=== PATIENT | male | born 1945 | race Caucasian/White ===

== ENCOUNTER 2017-05-30 20:44 | Emergency (ER) | payer MEDICARE ==
[2017-05-30 20:57] VITALS: BP 122/80; PULSE 91; RESP 16; TEMP 97.5
--- NOTE | 2017-05-30 21:26 | XR ---
EXAMINATION TYPE: XR chest 2V DATE OF EXAM: 05/30/2017 COMPARISON: NONE HISTORY: Cough TECHNIQUE: Frontal and lateral views of the chest are obtained. FINDINGS: Heart and mediastinum are normal. Lungs are clear. Costophrenic angles are clear. Bony tho rax is intact. IMPRESSION: Normal chest
--- NOTE | 2017-05-30 21:29 | ED ---
General Adult HPI - General Chief complaint: Back Pain/Injury Stated complaint: Back pain Time Seen by Provider: 05/30/17 21:04 Source: patient, RN notes reviewed Mode of arrival: ambulatory Limitations: no limitations - History of Present Illness Initial comments: 71-year-old male presents to the emergency department with a chief complaint of left-sided posterior rib pain. He states that he has been coughing a lot lately and anytime he coughs to get this pain to the left lower ribs. He states he is currently on Bactrim from his doctor due to upper respiratory infections. He states he just continues to have this cough that is causing some pain. He states he is not coughing anything removed. Can do whatever but as soon as he starts coughing he'll get a sharp pain. He denies any increased shortness of breath. He states that her respiratory symptoms seem to be improving. He was just making sure that everything was okay so he thought that he should be seen.Patient denies any recent fever, chills, shortness of breath, chest pain, back pain, abdominal pain, nausea vomiting, numbness or tingling, dysuria or hematuria, constipation or diarrhea, headaches or visual changes, or any other current symptoms. - Related Data Home Medications Medication Instructions Recorded Confirmed Losartan/Hydrochlorothiazide 1 each PO DAILY 08/06/13 10/14/13 [Losartan-Hctz 100-25 mg Tab] Ranitidine HCl [Zantac] 150 mg PO DAILY 08/06/13 10/14/13 Simvastatin [Zocor] 10 mg PO HS 08/06/13 10/14/13 Tamsulosin [Flomax] 0.4 mg PO DAILY 08/06/13 10/14/13 amLODIPine BESYLATE [Norvasc] 5 mg PO DAILY 08/06/13 10/14/13 Indomethacin [Indocin] 50 mg PO BID 10/14/13 10/14/13 Previous Rx's Medication Instructions Recorded Meclizine [Antivert] 25 mg PO TID #20 tab 10/14/13 Promethaz-Cod 6.25-10 mg/5 ml 5 ml PO Q4HR PRN #30 ml 05/30/17 [Phenergan with Codeine] Allergies Allergy/AdvReac Type Severity Reaction Status Date / Time No Known Allergies Allergy Verified 10/14/13 07:18 Review of Systems ROS Statement: Those systems with pertinent positive or pertinent negative responses have been documented in the HPI. ROS Other: All systems not noted in ROS Statement are negative. Past Medical History Past Medical History: GERD/Reflux, Hyperlipidemia, Hypertension, Osteoarthritis (OA), Prostate Disorder History of Any Multi-Drug Resistant Organisms: None Reported Past Surgical History: Appendectomy, Back Surgery, Hernia Repair, Joint Replacement, Orthopedic Surgery Additional Past Surgical History / Comment(s): LT TKA 2009 Past Anesthesia/Blood Transfusion Reactions: Postoperative Nausea & Vomiting ( PONV) Past Psychological History: No Psychological Hx Reported Smoking Status: Former smoker Past Alcohol Use History: Occasional Past Drug Use History: None Reported - Past Family History Mother Family Medical History: Cancer General Exam Limitations: no limitations General appearance: alert, in no apparent distress Eye exam: Present: normal appearance, PERRL, EOMI. Absent: scleral icterus, conjunctival injection, periorbital swelling ENT exam: Present: normal exam, mucous membranes moist Neck exam: Present: normal inspection. Absent: tenderness, meningismus, lymphadenopathy Respiratory exam: Present: normal lung sounds bilaterally, chest wall tenderness (Over left posterior lower rib cage). Absent: respiratory distress, wheezes, rales, rhonchi, stridor Cardiovascular Exam: Present: regular rate, normal rhythm GI/Abdominal exam: Present: soft, normal bowel sounds. Absent: distended, tenderness, guarding, rebound, rigid Extremities exam: Present: normal inspection, full ROM, normal capillary refill. Absent: tenderness, pedal edema, joint swelling, calf tenderness Back exam: Present: normal inspection, full ROM. Absent: tenderness Neurological exam: Present: alert, oriented X3 Psychiatric exam: Present: normal affect, normal mood Skin exam: Present: warm, dry, intact, normal color. Absent: rash Course Vital Signs 05/30/17 20:52 Temperature 97.5 F L Pulse Rate 91 Respiratory 16 Rate Blood Pressure 122/80 O2 Sat by Pulse 97 Oximetry Medical Decision Making - Medical Decision Making 71-year-old male presents with what appears to be a costochondritis. This time we discussed ice to the area. We discussed Motrin Tylenol. We did give him cough medicine. We discussed follow-up we discussed return parameters all questions. They stated they understood and management this plan. All questions have been answered. They will be discharged. - Radiology Data Radiology results: report reviewed, image reviewed Disposition Clinical Impression: Costochondritis, acute Disposition: HOME SELF-CARE Condition: Stable Instructions: Costochondritis (ED) Additional Instructions: Please use medication as discussed. Please follow up with family doctor if symptoms have not improved over the next two days. Please return to the emergency room if your symptoms increase or worsen or for any other concerns. Prescriptions: Promethaz-Cod 6.25-10 mg/5 ml [Phenergan with Codeine] 5 ml PO Q4HR PRN #30 ml PRN Reason: Cough Referrals: Ramsey Vaughn MD [Primary Care Provider] - 1-2 days Time of Disposition: 21:33
== END 2017-05-30 21:40 | disposition home or self-care (01) ==
LOC: EC 20:44
DX: M94.0 Chondrocostal junction syndrome [Tietze] (principal); K21.9 Gastro-esophageal reflux disease without esophagitis; E78.5 Hyperlipidemia, unspecified; I10 Essential (primary) hypertension; M19.90 Unspecified osteoarthritis, unspecified site; N42.9 Disorder of prostate, unspecified; Z98.890 Other specified postprocedural states; Z87.891 Personal history of nicotine dependence; Z79.1 Long term (current) use of non-steroidal anti-inflammatories (NSAID); Z79.899 Other long term (current) drug therapy
CPT/HCPCS: 71046; 99283

== ENCOUNTER 2018-02-11 09:35 | Day surgery (SDC) | payer MEDICARE ==
[2018-02-06 10:38] VITALS: BMI 26.6
[~2018-02-11 09:35] MED LIST: DEXAMETHASONE SOD PHOSPHATE 10 MG/ML 1 ML VIAL IV ONE; HEPARIN SODIUM,PORCINE 5,000 UNIT/ML 1 ML VIAL SQ ONE; HYDROmorphone 1 MG/ML 1 ML SYRINGE IVP PRN; ONDANSETRON 4 MG/2 ML VIAL IVP ONE; ceFAZolin IN SWFI 2 GM/20 ML SYRINGE IVP ONE
[2018-02-11] MEDS: LACTATED RINGERS 1,000 ML IV SCH ×2 (11:41→11:42)
[2018-02-11] MEDS ORDERED: LIDOCAINE 1% 20 ML VIAL (10MG/ML) FOR IV START INTRADERMA ONE (11:42)
[2018-02-11] MEDS ORDERED: MIDAZOLAM 2 MG/2 ML VIAL IVP ONE (11:57)
--- NOTE | 2018-02-11 12:41 | P.GSHP ---
History of Present Illness H&P Date: 02/11/18 Chief Complaint: Left inguinal hernia This a 72-year-old male referred from Dr. Vaughn. Patient presents today for laparoscopic robotic-assisted repair of left inguinal hernia. Patient has an incarcerated left we'll hernia. There is omentum and colon within the hernia. Past Medical History Past Medical History: Hyperlipidemia, Hypertension, Osteoarthritis (OA), Prostate Disorder, Thyroid Disorder Additional Past Medical History / Comment(s): hx ulcer, History of Any Multi-Drug Resistant Organisms: None Reported Past Surgical History: Appendectomy, Back Surgery, Heart Catheterization, Hernia Repair, Joint Replacement, Orthopedic Surgery Additional Past Surgical History / Comment(s): left knee replacement, afshan elbow surgery for tendon release, rt inguinal heria, spinal laminectomy, left knee arthroscopy, rt bicep tendon reattached, rt hip replacement, rt hip revision, cervical fusion, afshan cataracts Past Anesthesia/Blood Transfusion Reactions: Postoperative Nausea & Vomiting ( PONV) Smoking Status: Former smoker - Past Family History Mother Family Medical History: Cancer Additional Family Medical History / Comment(s): breast Medications and Allergies Home Medications Medication Instructions Recorded Confirmed Type Losartan/Hydrochlorothiazide 1 each PO DAILY 08/06/13 02/06/18 History [Losartan-Hctz 100-25 mg Tab] Simvastatin [Zocor] 10 mg PO HS 08/06/13 02/11/18 History Tamsulosin [Flomax] 0.4 mg PO BID 08/06/13 02/11/18 History amLODIPine BESYLATE [Norvasc] 5 mg PO DAILY 08/06/13 02/06/18 History Indomethacin [Indocin] 50 mg PO BID 10/14/13 02/06/18 History Acetaminophen Tab [Tylenol Tab] 325 mg PO Q6H PRN 02/06/18 02/11/18 History Aspirin [Adult Low Dose Aspirin EC] 81 mg PO DAILY 02/06/18 02/06/18 History Levothyroxine Sodium [Synthroid] 25 mcg PO DAILY 02/06/18 02/06/18 History Omeprazole 20 mg PO QAM 02/06/18 02/06/18 History Xlear 2 spray NASAL BID 02/06/18 02/11/18 History Allergies Allergy/AdvReac Type Severity Reaction Status Date / Time No Known Allergies Allergy Verified 02/06/18 10:23 Surgical - Exam Vital Signs Temp Pulse Resp BP Pulse Ox 98.1 F 69 18 131/78 94 L 02/11/18 11:09 02/11/18 11:09 02/11/18 11:09 02/11/18 11:09 02/11/18 11:09 - General well developed, no distress - Eyes PERRL - ENT normal pinna - Neck no masses - Respiratory normal expansion - Cardiovascular Rhythm: regular - Abdomen Incarcerated left internal hernia Abdomen: soft, non tender Assessment and Plan Assessment: Left inguinal hernia. We'll perform laparoscopic robotic-assisted repair.
[2018-02-11] MEDS ORDERED: ePHEDrine SULFATE/0.9% NACL/PF 50 MG/5 ML SYRINGE IV ONE (13:06)
[2018-02-11] MEDS ORDERED: SUCCINYLCHOLINE CHLORIDE 100 MG/5 ML SYR IV ONE (13:06)
[2018-02-11] MEDS ORDERED: LIDOCAINE 1% INJ 10MG/ML (20 ML MDV) ONE (13:06)
[2018-02-11] MEDS ORDERED: NEOSTIGMINE 1 MG/ML 10 ML VIAL ONE (13:06)
[2018-02-11] MEDS ORDERED: ROCURONIUM BROMIDE 10 MG/ML 10 ML VIAL IV ONE (13:06)
[2018-02-11] MEDS ORDERED: MIDAZOLAM 2 MG/2 ML VIAL ONE (13:06)
[2018-02-11] MEDS ORDERED: GLYCOPYRROLATE 0.2 MG/ML 2 ML VIAL ONE (13:06)
[2018-02-11] MEDS ORDERED: ONDANSETRON 4 MG/2 ML VIAL ONE (13:06)
[2018-02-11] MEDS ORDERED: ROPIVACAINE 5 MG/ML 30 ML VIAL ONE (13:06)
[2018-02-11] MEDS ORDERED: fentaNYL (PF) 50 MCG/ML 2 ML AMP ONE (13:06)
[2018-02-11] MEDS ORDERED: PROPOFOL 10 MG/ML 20 ML VIAL IV ONE (13:06)
[2018-02-11] MEDS ORDERED: BUPIVACAIN-EPI 0.25%-1:200,000 30 ML VIAL SQ ONE (13:29)
[2018-02-11] MEDS ORDERED: LACTATED RINGERS 1,000 ML IV ONE (14:15)
[2018-02-11 14:30] VITALS: TEMP 97.9
[2018-02-11 15:04] VITALS: RESP 16
[2018-02-11 16:00] VITALS: BP 123/69; PULSE 78
--- NOTE | 2018-02-11 18:34 | P.OP ---
Date of Procedure: 02/11/18 Preoperative Diagnosis: Incarcerated left inguinal hernia Postoperative Diagnosis: Incarcerated left inguinal hernia Procedure(s) Performed: Laparoscopic robotic-assisted repair of incarcerated left renal hernia Excision of cord lipoma Anesthesia: PIPER Surgeon: Donal Multani Estimated Blood Loss (ml): 5 Pathology: other (Cord lipoma) Condition: stable Disposition: PACU Description of Procedure: The patient was placed on the operating table in the supine position. The patient received general anesthesia. The patient's abdomen was prepped and draped in usual sterile fashion. The skin was anesthetized 1% local Xylocaine at the incision sites. Using an 11 blade a skin incision was made at the umbilicus. The fascia was grasped with a [place] and then the peritoneal cavity was entered with the Veress needle. Position of the Veress needle was confirmed with a positive drop test. After adequate insufflation a 5 mm trocar was placed into the peritoneal cavity. The Laparoscope was placed the peritoneal cavity. And a robotic 8 mm trocar was placed in the right lateral position and then another 8 mm robotic trochars placed in the left lateral position. The original 5 mm trocar was exchanged for a 12 mm trocar. The patient was placed in reverse Trendelenburg and then the patient was docked to the robot. Next the peritoneum over top of the hernia was incised and then using blunt and sharp dissection and electrocautery the hernia sac was dissected free from the floor of the inguinal canal. The omentum and colon was reduced from the hernia. The hernia sac was completely reduced into the peritoneal cavity. A cord lipoma was dissected free from the cord. And then using the Pro price checker mesh the hernia was repaired. The peritoneum was then sutured with 2-0V lock suture. The patient was then undocked the robot. The needle was withdrawn from the peritoneal cavity. The cord lipoma was retrieved. The umbilical trocar site was closed with 0 Ethibond suture. The skin was closed interrupted 3-0 Monocryl suture. Dermabond dressing was applied. Patient was sent to recovery in stable condition.
--- NOTE | 2018-02-18 11:21 | P.ONQ ---
Anesthesiology Proc Note - PNB - Peripheral Nerve Block Performed Left Transversus Abdominis Single Time Out Performed: Yes Procedure Start Time: 11:48 Procedure Stop Time: 11:52 Indication: Acute Post-Operative Pain, Requested by physician Sedation Type: Sedate with meaningful contact maintained Preparation: Sterile Prep Position: Supine Needle Size: 50mm (2") Needle Gauge: 21 Technique: Ultrasound Injectate: 0.5% Ropivacaine (see comment for volume) (ropi .5% 20cc plus xylo 1 % 20cc) Blood Aspirated: No Pain Paresthesia on Injection Noted: No Resistance on Injection: Normal Events: Uneventful and Well Tolerated
== END 2018-02-11 16:50 | disposition home or self-care (01) ==
LOC: OR 09:35
PROVIDERS: ATTEND Surgery
DX: K40.30 Unilateral inguinal hernia, with obstruction, without gangrene, not specified as recurrent (principal); D17.6 Benign lipomatous neoplasm of spermatic cord; E78.5 Hyperlipidemia, unspecified; I10 Essential (primary) hypertension; M15.9 Polyosteoarthritis, unspecified; K21.9 Gastro-esophageal reflux disease without esophagitis; N40.0 Benign prostatic hyperplasia without lower urinary tract symptoms; E07.9 Disorder of thyroid, unspecified; Z87.891 Personal history of nicotine dependence; Z79.82 Long term (current) use of aspirin; Z79.890 Hormone replacement therapy; Z79.899 Other long term (current) drug therapy
CPT/HCPCS: 49650; 88304; C1781; J2250; J1644; J1100; J2710; J2405; J2001; J3010; J2795; J0330; J2704; J0690; 64486